=== PATIENT | female | born 1990 ===

== ENCOUNTER 2018-09-29 05:06 | Emergency (ER) | payer OTHER ==
--- NOTE | 2018-09-29 05:09 | PDOC ---
History of Present Illness - General Chief Complaint: Urinary Problem Stated Complaint: UTI SYMPTOMS History Source: Patient Exam Limitations: No Limitations - History of Present Illness Initial Comments: 09/29/18 05:08 This is 27-year-old female who comes in complaining of frequency and dysuria times one day. Patient also is complaining of some mild suprapubic discomfort. Patient denies any fevers, chills, back or flank pain. Patient has history of urinary tract infections in the past. Allergies: as per nursing notes Past Medical History: none Social history: Lives with family. No smoking. No alcohol. No illicit drugs. Surgical history: None General: No fevers or chills, no weakness, no weight loss HEENT: No change in vision. No sore throat,. No ear pain CardioVascular: no chest discomfort. No shortness of breath Respiratory:No cough, or wheezing. Gastrointestinal: no nausea, vomiting, diarrhea or constipation, No rectal bleeding Genitourinary: No dysuria, hematuria, or frequency Musculoskeletal: No joint or muscle pain or swelling Neurologic: No headache, vertigo, dizziness or loss of consciousness Psychiatric: nor depression Skin: No rashes or easy bruising Endocrine: no increased thirst or abnormal weight change Allergic: no skin or latex allergy All other systems reviewed and normal GENERAL: The patient is awake, alert, and fully oriented, in no acute distress. HEAD: Normal with no signs of trauma. EYES: Pupils equal, round and reactive to light, extraocular movements intact, sclera anicteric, conjunctiva clear. BACK/FLANK: There is no tenderness or pain on palpation of the CVA area or flank. There is some mild tenderness on palpation suprapubic EXTREMITIES:atraumatic, Normal range of motion, no edema. NEUROLOGICAL: Normal speech, normal gait. PSYCH: Normal mood, normal affect. SKIN: Warm, Dry, normal turgor, no rashes or lesions noted. Assessment and plan: This is a 27-year-old female comes in complaining of urinary tract and sent infection symptoms. UA, urine culture and urine sent 09/29/18 06:46 Urine is positive for urinary tract infection. Patient started on Macrodantin and Pyridium and discharged home Past History - Past Medical History Allergies/Adverse Reactions: Allergies Allergy/AdvReac Type Severity Reaction Status Date / Time No Known Allergies Allergy Verified 02/14/12 21:12 Home Medications: Ambulatory Orders Nitrofurantoin Monohyd/M-Cryst [Macrobid -] 100 mg PO BID #14 capsule 09/29/18 Norethindrone AC-Eth Estradiol [Microgestin 21 1-20 Tablet] 1 each PO DAILY Phenazopyridine HCl [Pyridium] 200 mg PO TID #6 tablet 09/29/18 - Immunization History Td Vaccination: Yes TDAP Vaccination: Yes Immunization Up to Date: Yes - Suicide/Smoking/Psychosocial Hx Smoking Status: No Smoking History: Former smoker Number of Cigarettes Smoked Daily: 0 Cigars Per Day: 0 *DC/Admit/Observation/Transfer Diagnosis at time of Disposition: UTI (urinary tract infection) Qualifiers: Urinary tract infection type: acute cystitis Hematuria presence: without hematuria Qualified Code(s): N30.00 - Acute cystitis without hematuria - Discharge Dispostion Disposition: HOME Condition at time of disposition: Stable Decision to Admit order: No - Referrals - Patient Instructions Additional Instructions: Drink plenty of fluids and stay well-hydrated. For the infection take Macrobid 1 tablet twice a day for 7 days. Also take Pyridium one tablet 3 times a day for 2 days this is for the symptoms it will turn her urine bright orange so do not be concerned-appearing urine becomes bright orange. Return to the emergency department immediately with ANY new, persistent or worsening symptoms. Continue any medications as previously prescribed by your physician. You should follow up with your primary doctor as soon as possible regarding today's emergency department visit. . Please make sure your doctor reviews the results of your emergency evaluation. Thank you for coming to the Emergency Department today for your care. It was a pleasure to see you today. Please note that your evaluation is INCOMPLETE until you follow-up with your doctor. - Post Discharge Activity
[2018-09-29] MEDS ORDERED: PHENAZOPYRIDINE HCL 100 MG TABLET (FP) PO ONE (05:14)
[2018-09-29] MEDS ORDERED: PHENAZOPYRIDINE HCL 100 MG TABLET (FP) ONE (05:16)
[2018-09-29 05:34] VITALS: BP 103/63; PULSE 72; TEMP 98.6; BMI 27.4
[2018-09-29 06:18] LABS: EPI CELLS 31.2 /HPF (0-5/HPF); HYALINE CASTS 48 /lpf (0-8); PH,URINE 6.5 (5.0-8.0); URINE APPEARANCE CLOUDY; URINE BACTERIA 1436.5 /hpf (NEGATIVE); URINE BILIRUBIN NEGATIVE (NEGATIVE); URINE COLOR YELLOW; URINE GLUCOSE (UA) NEGATIVE (NEGATIVE); URINE KETONE TRACE (NEGATIVE); URINE LEUK ESTERASE 3+ (NEGATIVE); URINE NITRITE NEGATIVE (NEGATIVE); URINE PROTEIN NEGATIVE (NEGATIVE); URINE RBC 5 /hpf (0-4); URINE WBC 151 /hpf (0-5)
[2018-09-29] MEDS ORDERED: NITROFURANTOIN MACROCRYSTAL 50 MG CAPSULE (FP) PO SCH (06:45)
[2018-09-29] MEDS ORDERED: NITROFURANTOIN MACROCRYSTAL 50 MG CAPSULE (FP) ONE (06:48)
== END 2018-09-29 06:52 | disposition home or self-care (01) ==
LOC: FER 05:06
DX: N30.00 Acute cystitis without hematuria (principal); Z87.891 Personal history of nicotine dependence
CPT/HCPCS: 81003; 84703; 87086; 87186; 99282-25

== ENCOUNTER 2021-02-10 07:44 | Inpatient (IN) | payer OTHER ==
[2021-02-10] MEDS ORDERED: BUTORPHANOL TARTRATE 1 MG/ML VIAL IVPB PRN ×2 (09:34)
[2021-02-10 09:43] VITALS: BMI 35.9
[2021-02-10 09:45] LABS: BASO % 0.1 % (0-2.0); EOS % 0.7 % (0-4.5); HEMATOCRIT 36.6 % (32.4-45.2); HEMOGLOBIN 12.4 GM/dL (10.7-15.3); LYMPH % 15.8 % (8-40); MCH 32.7 pg (25.7-33.7); MCHC 33.7 g/dl (32.0-36.0); MEAN CELL VOLUME 97.1 fl (80-96); MEAN PLT VOLUME 9.3 fl (7.5-11.1); MONO % 6.1 % (3.8-10.2); NEUT % 77.3 % (42.8-82.8); PLATELET COUNT 211 10^3/uL (134-434); RBC 3.77 M/mm3 (3.60-5.2); RDW 13.9 % (11.6-15.6)
[2021-02-10] MEDS ORDERED: OXYTOCIN 30 UNITS in 0.9% NS 30 UNIT/500 ML INFUS.BAG IVPB SCH (09:45)
[2021-02-10 09:54] LABS: INR 0.84 (0.83-1.09); PROTHROMBIN TIME (PATIENT) 10.3 SEC (9.7-13.0)
[2021-02-10 09:56] LABS: ACTIVATED PTT 24.7 SECONDS (25.2-36.5)
[2021-02-10 10:06] LABS: CALCIUM 8.7 mg/dL (8.5-10.1)
[2021-02-10 10:10] LABS: CREATININE 0.5 mg/dL (0.55-1.3)
[2021-02-10 10:12] LABS: BLOOD UREA NITROGEN 6.6 mg/dL (7-18)
[2021-02-10] MEDS ORDERED: OXYTOCIN 30 UNITS in 0.9% NS 30 UNIT/500 ML INFUS.BAG IVPB ONE (10:27)
[2021-02-10] MEDS: ELECTROLYTE-148 SOLN 1,000 ML IV SCH ×3 (10:55→19:15)
[2021-02-10] MEDS ORDERED: BENZOCAINE 20% 57 GM BOTTLE TP PRN (12:46)
[2021-02-10] MEDS ORDERED: BENZOCAINE 28 GM HEMORRHOIDAL OINTMENT TP PRN (12:46)
[2021-02-10] MEDS ORDERED: IBUPROFEN 600 MG TABLET (FP) PO PRN (12:46)
[2021-02-10] MEDS ORDERED: SIMETHICONE 80 MG TAB.CHEW (FP) PO PRN (12:46)
[2021-02-10] MEDS ORDERED: IBUPROFEN 800 MG/8 ML IJ IVPB PRN (12:46)
[2021-02-10] MEDS ORDERED: ACETAMINOPHEN 325 MG TABLET (FP) PO PRN (12:46)
[2021-02-10] MEDS ORDERED: WITCH HAZEL 50% (TUCKS) 40 PAD/JAR PAD TP PRN (12:46)
[2021-02-10] MEDS ORDERED: METHYLERGONOVINE MALEATE 0.2 MG/1 ML AMP IM PRN (12:46)
[2021-02-10] MEDS ORDERED: OXYTOCIN 20 UNITS in 0.9% NS 20 UNIT/1,000 ML INFUS.BAG IV SCH (13:00)
[2021-02-10] MEDS ORDERED: FENTANYL/BUPIVACAINE/NS/PF - PCEA - 50 ML DISP.SYRIN EP ONE ×2 (15:49→21:14)
[2021-02-10] MEDS ORDERED: BUPIVACAINE HCL/PF 0.25% (2.5MG/ML) 10 ML VIAL ONE (16:03)
[2021-02-10] MEDS: FENTANYL/BUPIVACAINE/NS/PF - PCEA - 50 ML DISP.SYRIN EP SCH ×2 (16:25→21:15)
[2021-02-10] MEDS ORDERED: NALOXONE HCL 0.4 MG/ML VIAL IVPUSH PRN (16:35)
[2021-02-10] MEDS ORDERED: PCA PUMP NR ONE ×3 (18:31→23:56)
[2021-02-10] MEDS ORDERED: LIDOCAINE HCL 1% PRESERVATIVE FREE - 30ML VIAL ONE (21:36)
[2021-02-10] MEDS ORDERED: OXYTOCIN 20 UNITS in 0.9% NS 20 UNIT/1,000 ML INFUS.BAG IV ONE (21:36)
[2021-02-10] MEDS ORDERED: ceFAZolin 2 GRAM PREMIX BAG IVPB ONE (23:43)
[2021-02-10] MEDS ORDERED: CEFAZOLIN 2 GM in DEXTROSE 5%-WATER - 100 ML IVPB ONE (23:45)
[2021-02-10] MEDS ORDERED: oxyCODONE HCL 5 MG TABLET ONE (23:54)
[2021-02-11 00:16] LABS: CORD BASE EXCESS -11.4 mmol/L (0-2); CORD HCO3 16.7 mmHg (20-29); CORD PCO2 45.5 mmHg (30-78); CORD pH 7.183 (7.14-7.44)
[2021-02-11 00:19] LABS: CORD BASE EXCESS -10.6 mmol/L (0-2); CORD HCO3 16.2 mmHg (20-29); CORD PCO2 39.3 mmHg (30-78); CORD pH 7.234 (7.14-7.44)
[2021-02-11] MEDS ORDERED: ceFAZolin SODIUM 1 GM VIAL ONE (00:43)
[2021-02-11] MEDS: FERROUS SO4 325 MG TABLET (FP) PO SCH ×3 (00:52→23:05)
[2021-02-11] MEDS ORDERED: CEFAZOLIN 2 GM in DEXTROSE 5%-WATER - 100 ML IVPB ONE (01:00)
[2021-02-11 09:16] LABS: BASO % 0.3 % (0-2.0); EOS % 0.1 % (0-4.5); HEMATOCRIT 31.4 % (32.4-45.2); HEMOGLOBIN 10.7 GM/dL (10.7-15.3); LYMPH % 10.5 % (8-40); MCH 32.8 pg (25.7-33.7); MEAN CELL VOLUME 96.5 fl (80-96); MONO % 6.4 % (3.8-10.2); NEUT % 82.7 % (42.8-82.8); PLATELET COUNT 172 10^3/uL (134-434); RBC 3.26 M/mm3 (3.60-5.2); RDW 14.3 % (11.6-15.6); WHITE BLOOD COUNT 15.4 K/mm3 (4.0-10.0)
[2021-02-11] MEDS: PRENATAL VITAMINS W/ FOLIC ACID TABLET (FP) PO SCH (09:16)
[2021-02-11] MEDS ORDERED: oxyCODONE HCL 5 MG TABLET PO PRN ×2 (12:46)
[2021-02-11] MEDS ORDERED: BISACODYL 10 MG SUPP.RECT RC PRN (12:46)
[2021-02-12] MEDS: FERROUS SO4 325 MG TABLET (FP) PO SCH (09:14)
[2021-02-12] MEDS: PRENATAL VITAMINS W/ FOLIC ACID TABLET (FP) PO SCH (09:14)
[2021-02-12 09:17] VITALS: BP 102/68; PULSE 87; TEMP 97.9
== END 2021-02-12 14:10 | disposition home or self-care (01) | DRG 807 ==
LOC: JLDR 07:44 → J3W 02-11 01:51
PROVIDERS: ADMIT Obstetrics & Gynecology; ATTEND Obstetrics & Gynecology
PROC: 10E0XZZ Delivery of Products of Conception, External Approach (ICD-10-PCS; principal; 2021-02-10)
PROC: 3E033VJ Introduction of Other Hormone into Peripheral Vein, Percutaneous Approach (ICD-10-PCS; 2021-02-10)
DX: O48.0 Post-term pregnancy (principal); Z37.0 Single live birth; O70.0 First degree perineal laceration during delivery; Z3A.42 42 weeks gestation of pregnancy
CPT/HCPCS: 36415; 36600; 59409; 80048; 82803; 85025; 85610; 85730; 86780; 86850; 86900; 86901